=== PATIENT | male | born 2005 | race Two or more races ===

== ENCOUNTER 2024-10-05 13:24 | Emergency (ER) | payer SELFPAY ==
[2024-10-05 13:32] VITALS: PULSE 131
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
== END 2024-10-05 13:44 | disposition left against medical advice (07) ==
LOC: SERX 15:48
PROVIDERS: Emergency Provider Emergency Medicine
DX: Z53.21 Procedure and treatment not carried out due to patient leaving prior to being seen by health care provider (principal)